=== PATIENT | female | born 1975 | race Caucasian/White ===

== ENCOUNTER → 2023-07-14 14:04 | Outpatient (BNVA) | payer MEDICARE, MEDICAID, SELFPAY | PROVIDERS: Family Provider Family Medicine; PCP Nurse Practitioner; Visit Provider Nurse Practitioner | DX: E55.9 Vitamin D deficiency, unspecified (principal); E61.1 Iron deficiency; E03.9 Hypothyroidism, unspecified; R23.2 Flushing | CPT/HCPCS: 80053; 80061; 82306; 82607; 83001; 83550; 84439; 84443; 84481; 85025 ==

== ENCOUNTER → 2023-07-25 11:05 | Outpatient (BNVA) | payer MEDICARE, MEDICAID, SELFPAY | PROVIDERS: Family Provider Family Medicine; PCP Nurse Practitioner; Referring Provider Nurse Practitioner; Visit Provider Internal Medicine Cardiovascular Disease | DX: R07.89 Other chest pain (principal); Q87.40 Marfan syndrome, unspecified; F17.210 Nicotine dependence, cigarettes, uncomplicated; R94.31 Abnormal electrocardiogram [ECG] [EKG] | CPT/HCPCS: 93005; 99204 ==

== ENCOUNTER 2023-07-27 06:00 | Outpatient (RCR) | payer MEDICARE, MEDICAID, SELFPAY | END 2023-08-02 23:59 | disposition home or self-care (01) | LOC: APT 06:00 | PROVIDERS: Family Provider Family Medicine; PCP Nurse Practitioner; Visit Provider Physician Assistant Surgical | DX: Z47.89 Encounter for other orthopedic aftercare (principal) | CPT/HCPCS: 97110; 97112; 97162 ==

== ENCOUNTER → 2023-07-29 09:10 | Outpatient (BNVA) | payer MEDICARE, MEDICAID, SELFPAY | PROVIDERS: Family Provider Family Medicine; PCP Nurse Practitioner; Visit Provider Podiatrist Foot & Ankle Surgery | DX: M79.671 Pain in right foot (principal); M76.821 Posterior tibial tendinitis, right leg; M79.672 Pain in left foot | CPT/HCPCS: 73630; 99203 ==

== ENCOUNTER 2023-08-03 06:00 | Outpatient (RCR) | payer MEDICARE, MEDICAID, SELFPAY | END 2023-09-01 23:59 | disposition home or self-care (01) | LOC: APT 06:00 | PROVIDERS: Family Provider Family Medicine; PCP Nurse Practitioner; Visit Provider Physician Assistant Surgical | DX: Z47.89 Encounter for other orthopedic aftercare (principal) | CPT/HCPCS: 97110; 97112; 97140; 97530 ==

== ENCOUNTER 2023-09-02 06:00 | Outpatient (RCR) | payer MEDICARE, MEDICAID, SELFPAY | END 2023-10-02 23:59 | disposition home or self-care (01) | LOC: APT 06:00 | PROVIDERS: PCP Nurse Practitioner; Visit Provider Physician Assistant Surgical | DX: Z47.89 Encounter for other orthopedic aftercare (principal) | CPT/HCPCS: 97110; 97112; 97530 ==

== ENCOUNTER → 2023-09-19 15:05 | Outpatient (BNVA) | payer MEDICARE, MEDICAID, SELFPAY | PROVIDERS: PCP Nurse Practitioner; Visit Provider Specialist | DX: G43.711 Chronic migraine without aura, intractable, with status migrainosus (principal); G43.011 Migraine without aura, intractable, with status migrainosus; Q87.43 Marfan syndrome with skeletal manifestation | CPT/HCPCS: 99204 ==

== ENCOUNTER 2023-10-03 06:00 | Outpatient (RCR) | payer MEDICARE, MEDICAID, SELFPAY | END 2023-11-02 23:59 | disposition home or self-care (01) | LOC: APT 06:00 | PROVIDERS: PCP Nurse Practitioner; Visit Provider Physician Assistant Surgical | DX: Z47.89 Encounter for other orthopedic aftercare (principal) | CPT/HCPCS: 97110; 97530 ==

== ENCOUNTER → 2023-12-12 10:26 | Outpatient (BNVA) | payer OTHER, MEDICAID, SELFPAY | PROVIDERS: PCP Nurse Practitioner; Visit Provider Nurse Practitioner | DX: E78.2 Mixed hyperlipidemia; E55.9 Vitamin D deficiency, unspecified; E53.8 Deficiency of other specified B group vitamins; E03.9 Hypothyroidism, unspecified | CPT/HCPCS: 80053; 80061; 82306; 82607; 84443 ==

== ENCOUNTER → 2023-12-20 14:22 | Outpatient (BNVA) | payer MEDICARE, MEDICAID, SELFPAY | PROVIDERS: PCP Nurse Practitioner; Visit Provider Specialist | DX: G43.711 Chronic migraine without aura, intractable, with status migrainosus (principal) | CPT/HCPCS: 99213 ==

== ENCOUNTER 2024-01-24 10:56 | Outpatient (CLI) | payer MEDICARE, MEDICAID, SELFPAY ==
--- NOTE | 2024-01-24 11:00 | MR_ITS ---
WS: [id number] MRA HEAD TECHNIQUE: Axial 3-D TOF images obtained with axial images and axial, sagittal, and coronal 2-D refor matted images. CLINICAL INFORMATION: G43.711 - Chronic migraine without aura, intractable, wit... COMPARISON: None. FINDINGS: Distal vertebral arteries are patent. Basilar artery is patent. Normal vascularity to the SYSTEMS TEST ENGINEER territo ry bilaterally. Both ICAs are patent at the skull base. Patent anterior communicating artery. Normal vascularity to t he BETHANY and MCA territories bilaterally. No evidence of proximal flow-limiting stenosis or aneurysm. IMPRESSION: Normal intracranial MRA.
--- NOTE | 2024-01-24 11:15 | MR_ITS ---
WS: [id number] MRI HEAD WITHOUT CONTRAST TECHNIQUE: Sagittal T1, T2 axial, T2 axial FLAIR, axial and coronal T1 images, axial susceptibility w eighted imaging, axial diffusion weighted images, and coronal T2 images were obtained. CLINICAL INFORMATION: G43.711 - Chronic migraine without aura, intractable, wit... COMPARISON: None. FINDINGS: Diffuse susceptibility artifact compatible with hemosiderin involving the cerebellar folia and cerebellar vermis. Additional hemosiderin along the frontoparietal junctions bilaterally. Punctat e foci of hemosiderin involving the parasagittal occipital lobes. Findings compatible with superficia l siderosis and can be seen with recurrent subarachnoid hemorrhage. Recommend entire spine MRI in fur ther evaluation. Findings not typical for amyloid angiopathy. No evidence of restricted diffusion to suggest acute ischemia. Ventricular system and basilar cistern s are patent. Minimal white matter changes. Moderate parenchymal volume loss more prominent involving the frontal lobes and bilateral parietal lobes near the vertex. Normal vascular flow voids at the skull base. No extra-axial fluid collections. No evidence of mass o r mass effect. Inspissated secretions in the RIGHT maxillary sinus. Complete opacification of the RIG HT maxillary sinus. Normal posterior nasopharynx. Normal parapharyngeal fat. Mastoid air cells are well aerated. IMPRESSION: 1. No evidence of restricted diffusion to suggest acute ischemia 2. Minimal white matter changes. Moderate cortical parenchymal volume loss described above. 3. Inspissated secretions with complete opacification of the RIGHT maxillary sinus. 4. Diffuse hemosiderin more prominent in the posterior fossa described above compatible with superfi cial siderosis. This can be seen with recurrent subarachnoid hemorrhage. Recommend entire spine MRI i n further evaluation. Recommend correlation with prior spine trauma or spine surgery
== END 2024-01-24 10:57 | disposition home or self-care (01) ==
LOC: RAD 10:58
PROVIDERS: PCP Nurse Practitioner; Visit Provider Specialist
DX: G43.711 Chronic migraine without aura, intractable, with status migrainosus (principal); G31.89 Other specified degenerative diseases of nervous system
CPT/HCPCS: 70544; 70551

== ENCOUNTER → 2024-02-20 10:18 | Outpatient (BNVA) | payer MEDICARE, MEDICAID, SELFPAY | PROVIDERS: PCP Nurse Practitioner; Visit Provider Internal Medicine Cardiovascular Disease | DX: I77.819 Aortic ectasia, unspecified site (principal); I34.1 Nonrheumatic mitral (valve) prolapse; Q87.40 Marfan syndrome, unspecified; F17.210 Nicotine dependence, cigarettes, uncomplicated; E78.2 Mixed hyperlipidemia; E03.8 Other specified hypothyroidism | CPT/HCPCS: 99214 ==

== ENCOUNTER 2024-03-17 19:16 | Emergency (ER) | payer MEDICARE, MEDICAID, SELFPAY ==
[2024-03-17 19:25] VITALS: BP 122/71; PULSE 87; RESP 17; TEMP 36.6; O2SAT 96; BMI 27.4
--- NOTE | 2024-03-17 19:45 | ED_ITS ---
HPI - Ear Problem General: Chief complaint: Ear Stated complaint: ear/tooth pain Time Seen by Provider: 03/17/24 19:37 History of Present Illness: Patient presents with left jaw and ear pain. She states she is unclear if she has an ear infection, or if it is from an infected tooth, or if she is having a migraine. She tried taking her migraine medications which do not help. She just recently came off antibiotics. She lost a cap over her rear molar that looks like it could be infected. Review of Systems Narrative: Constitutional symptoms: Negative except as documented in HPI. Skin symptoms: Negative except as documented in HPI. Eye symptoms: Negative except as documented in HPI. ENMT symptoms: Negative except as documented in HPI. Respiratory symptoms: Negative except as documented in HPI. Cardiovascular symptoms: Negative except as documented in HPI. Gastrointestinal symptoms: Negative except as documented in HPI. Genitourinary symptoms: Negative except as documented in HPI. Musculoskeletal symptoms: Negative except as documented in HPI. Neurologic symptoms: Negative except as documented in HPI. Psychiatric symptoms: Negative except as documented in HPI. Endocrine symptoms: Negative except as documented in HPI. PFS ED PFSH: Medical History (Updated 03/17/24 @ 19:53 by Karen Edmonds MD) Cigarette smoker Adult acne IBS (irritable bowel syndrome) Plantar fasciitis Low serum iron Vitamin D deficiency Asthma Migraine Hypothyroid Scoliosis Tarlov cyst L and S spine PCOS (polycystic ovarian syndrome) MVP (mitral valve prolapse) Marfan syndrome 4mm aorta PTSD (post-traumatic stress disorder) Fibromyalgia Surgical History History of esophagogastroduodenoscopy (EGD) History of colonoscopy History of rotator cuff surgery Right April 2023 History of myringotomy History of hernia repair incision with mesh History of D&C History of section 2 times History of right oophorectomy age 13 History of appendectomy age 13 History of tonsillectomy Family History Grandfather Cancer Lung Mother Cancer squamous cell skin cancer Social History Smoking and tobacco/nicotine status: current every day tobacco/nicotine user Second hand smoke exposure: No Alcohol intake: former Substance/Drug Use: unknown Adopted: No Caregiver/support person: No Lives independently: Yes Household members: family and children Housing: House Marital status: Single Number of children: 2 service: No Current occupational status: disabled Current occupational exposures/hazards: No Pets and animals: Yes Pets & animals: cat(s) Do you think of yourself as: Straight/Heterosexual Current gender identity: Female Physical Exam Narrative: EXAM NARRATIVE: General: Alert, no acute distress. Skin: warm and dry Head: Normocephalic Neck: Trachea midline Eye: Extraocular movements are intact. Ears, nose, mouth and throat: Oral mucosa moist left most posterior molar (#17) appears decayed and possibly has infection at the base. Eardrum is retracted. No signs of infection. No redness. No pus. Respiratory: Respirations are non-labored Musculoskeletal: Normal ROM Neurological: Alert and oriented, No focal neurological deficit observed. Psychiatric: Cooperative, appropriate mood & affect. Course Vital Signs: Vital signs: Vital Signs Temperature 98 F 03/17/24 19:25 Pulse Rate 87 03/17/24 19:25 Respiratory Rate 17 03/17/24 19:25 Blood Pressure 122/71 03/17/24 19:25 Pulse Oximetry 96 03/17/24 19:25 Oxygen Delivery Me thod Room Air 03/17/24 19:25 MDM - Ear Medical Decision Making Assessment and plan: Dental infection ? First dose clinda here. IM Toradol. P.o. Elkins. - Discharged home - Discussed plan with patient. Answered any questions. - Evaluation and treatment of this problem were appropriate in the emergency setting. No radiology studies performed this visit Discharge Plan Discharge Patient Disposition: Home Clinical Impression: Dental infection, Headache, migraine Condition: Stable Prescriptions: New clindamycin HCl 300 mg capsule 600 mg PO Q8H 10 Days Qty: 60 0RF dexamethasone 6 mg tablet 6 mg PO DAILY 5 Days Qty: 5 0RF diclofenac sodium 50 mg tablet,delayed release (DR/EC) 50 mg PO Q12H Qty: 20 0RF fluconazole 100 mg tablet 100 mg PO DAILY 10 Days Qty: 10 0RF No Action midodrine 5 mg tablet 5 mg PO TID Qty: 90 3RF Rx Instructions: do not give last dose of day after 6PM or within 4 hrs of bedtime zolmitriptan [Zomig] 5 mg tablet 5 mg PO Q2H PRN (Reason: migraine headache) Qty: 10 5RF Rx Instructions: do not exceed 2 doses per 24 hrs gabapentin 300 mg capsule 300 mg PO TID Qty: 90 5RF (DME) Bilateral Carri Braces See Rx Instructions .Route .MEDSUPPLY Qty: 1 0RF Rx Instructions: As directed- Chloe Barbosa medroxyprogesterone 10 mg tablet 10 mg PO DAILY Qty: 30 2RF venlafaxine 150 mg capsule,extended release 24hr 150 mg PO DAILY Qty: 30 2RF venlafaxine 75 mg capsule,extended release 24hr 75 mg PO DAILY Qty: 30 2RF buspirone 10 mg tablet 10 mg PO .every 4 hours PRN Qty: 120 2RF cyanocobalamin (vitamin B-12) 1,000 mcg/mL solution 1,000 mcg IM .monthly Qty: 1 2RF clindamycin phosphate 1 % swab 1 applic topical BID Qty: 60 2RF nortriptyline 10 mg capsule 20 mg PO .HS Qty: 30 2RF ondansetron 4 mg tablet,disintegrating 4 mg PO Q6H Qty: 20 2RF pregabalin [Lyrica] 75 mg capsule 75 mg PO TID Qty: 90 5RF rosuvastatin 5 mg tablet 5 mg PO DAILY Qty: 30 2RF (DME) syringe with needle 3 mL 22 gauge x 1 syringe See Rx Instructions .ROUTE .MEDSUPPLY Qty: 1 2RF Rx Instructions: monthly with B12 tizanidine 2 mg tablet 2 mg PO TID Qty: 90 2RF chlorhexidine gluconate [Peridex] 0.12 % mouthwash 15 ml buccal BID Qty: 473 0RF promethazine 25 mg tablet 25 mg PO Q4H PRN cholecalciferol (vitamin D3) 25 mcg (1,000 unit) capsule 50 mcg PO DAILY aspirin [Adult Low Dose Aspirin] 81 mg tablet,delayed release (DR/EC) 81 mg PO DAILY docusate sodium [Colace] 100 mg capsule 100 mg PO DAILY methylprednisolone 4 mg tablets,dose pack See Rx Instructions PO .COMPLEX PRN Rx Instructions: taper dose orally ; PRN; rizatriptan 5 mg tablet 5 mg PO .COMPLEX Rx Instructions: 5 mg orally 1 may repeat in 2 hours; (DME) Carri brace Right foot See Rx Instructions .Route .MEDSUPPLY Qty: 1 0RF Rx Instructions: As directed to the [facility] (DME) [facility] Left foot See Rx Instructions .Route .MEDSUPPLY Qty: 1 0RF Rx Instructions: As directed to the [facility] levothyroxine 25 mcg tablet 25 mcg PO DAILY Qty: 30 5RF fexofenadine-pseudoephedrine [Silva-D 12 Hour] 60-120 mg tablet extended release 12 hr 1 tab PO Q12H PRN (Reason: allergy symptoms) Qty: 30 0RF Emgality Pen 120 mg/mL pen injector See Rx Instructions .ROUTE .COMPLEX Qty: 1 3RF Dose Instruction: INJECT 120 MG UNDER SKIN ONCE Rx Instructions: INJECT 120 MG UNDER SKIN ONCE Discharge Orders: Discharge ED (Routine); Ordered 03/17/24 Ordered By: Karen Edmonds Referrals: Liana Polanco, [facility] [Primary Care Provider] - 4-7 days (Please follow-up with your dentist as soon as possible) Discharge Diet: Advance as tolerated Patient Instructions: Dental Abscess (ED) Activity Restrictions/Additional Instructions: Thank you for choosing [facility] for your healthcare needs today. Please realize this is an emergency room and that we are providing you with a medical screening exam and this may not be complete and all inclusive of all the testing and or work up that you may need to determine your ailment or severity of your illness. You have been screened and evaluated and felt safe for discharge. Health cond itions do change or evolve sometimes and as such it is important that you follow up with your Primary Doctor to be re checked, 3-5 days is a general good time frame for follow up. 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
[2024-03-17] MEDS: HYDROcodone-acetaminophen 10-325 mg Tablet 1 TAB PO (20:19)
[2024-03-17] MEDS: fluconazole 100 mg Tablet 150 MG PO (20:19)
[2024-03-17] MEDS: ketorolac 60 mg/2 mL INJ 30 MG IM (20:19)
[2024-03-17] MEDS: clindamycin 150 mg Capsule 600 MG PO (20:21)
[2024-03-17 20:29] VITALS: BP 122/71; PULSE 87; RESP 17; TEMP 36.6; O2SAT 96
== END 2024-03-17 20:30 | disposition home or self-care (01) ==
PROVIDERS: Emergency Provider Emergency Medicine; PCP Nurse Practitioner
DX: K04.7 Periapical abscess without sinus (principal); G43.909 Migraine, unspecified, not intractable, without status migrainosus; Z79.82 Long term (current) use of aspirin; Z72.0 Tobacco use
CPT/HCPCS: 96372; 99284; J1885

== ENCOUNTER → 2024-03-20 12:55 | Outpatient (CLI) | payer MEDICARE, MEDICAID, SELFPAY ==
--- NOTE | 2024-03-20 13:00 | USCV_ITS ---
Tan Aria Age: 48 Gender: F : 1975 Exam Date: 03/20/2024 13:13 Ordering Phys: Prosper Araujo MD ([email or web address]) Technologist: Exam Location: [facility] Indication: mvp BP: 100 / 70 HR: 72 Rhythm: Sinus Technical Quality: Adequate MEASUREMENTS (Male / Female) Normal Values 2D ECHO LV Diastolic Diameter PLAX 5.3 cm 4.2 - 5.9 / 3.9 - 5.3 cm IVS Diastolic Thickness 0.9 cm 0.6 - 1.0 / 0.6 - 0.9 cm IVS Systolic Thickness 1.8 cm LVPW Diastolic Thickness 1.4 cm 0.6 - 1.0 / 0.6 - 0.9 cm LVPW Systolic Thickness 1.6 cm LVOT Diameter 2.0 cm LV Ejection Fraction 2D Teich 67.7 % LV Ejection Fraction MOD 2C 84.8 % LV Ejection Fraction 2C AL 85.0 % LA Diameter 3.2 cm RA Systolic Volume 4C AL 36.4 ml RA Systolic Volume 4C MOD 35.5 ml Aorta at Sinotubular Diameter 3.7 cm IVC Diameter 1.7 cm M-MODE LA Ao Ratio MM 1.0 AV Cusp Separation MM 2.6 cm DOPPLER AV Peak Velocity 111.0 cm/s LVOT Peak Velocity 85.0 cm/s AV Area Cont Eq vti 2.9 cm squared AV Area Cont Eq pk 2.5 cm squared MV Peak Velocity 84.0 cm/s MV Area PHT 3.9 cm squared Mitral E to A Ratio 1.1 TR Peak Velocity 253.0 cm/s TR Peak Gradient 25.6 mmHg TV Peak E Velocity 91.0 cm/s Right Atrial Pressure 3.0 mmHg Pulmonary Artery Systolic Pressu 28.6 mmHg PV Peak Velocity 88.0 cm/s FINDINGS Left Ventricle Normal left ventricular size, systolic function and wall thickness, with no regional wall motion abnormalities. Normal left ventricular wall thickness.left ventricular ejection fraction is estimated at 60 %. Grade I/IV diastolic dysfunction (abnormal relaxation filling pattern), normal to mildly elevated filling pressures. Right Ventricle The right ventricle is normal in size and function. Right Atrium The right atrium is normal in size. Left Atrium The left atrium is normal in size. Mitral Valve Thickened mitral valve. No mitral valve stenosis. Mild mitral valve regurgitation. Aortic Valve Thickened aortic valve. No aortic valve stenosis. Mild aortic valve regurgitation. Tricuspid Valve Structurally normal tricuspid valve without significant stenosis or regurgitation. Pulmonary artery systolic pressure is normal. Pulmonic Valve Mild pulmonary valve regurgitation. Pericardium Normal pericardium without effusion. Aorta Normal ascending aorta dimension. IVC The inferior vena cava appears normal. CONCLUSIONS 1-Normal left ventricular size, systolic function and wall thickness, with no regional wall motion abnormalities. Normal left ventricular wall thickness.left ventricular ejection fraction is estimated at 60 %. Grade I/IV diastolic dysfunction (abnormal relaxation filling pattern), normal to mildly elevated filling pressures. 2-Thickened mitral valve. No mitral valve stenosis. Mild mitral valve regurgitation. 3-Thickened aortic valve. No aortic valve stenosis. Mild aortic valve regurgitation. 4-There is no pericardial effusion. 5-Right atrial pressure is around 5 mm of mercury. Chrissy Arrieta MD (Electronically Signed) Final Date: 20 March 2024 19:13 S
[2024-03-20] MEDS: iohexol 350 mg/mL 500 mL Btl (per mL) IV (13:51)
--- NOTE | 2024-03-20 14:00 | CTR_ITS ---
PROCEDURE INFORMATION: Exam: CTA Chest With Contrast CTA Abdomen and Pelvis With Contrast Exam date and time: 03/20/2024 1:41 PM Age: 48 years old Clinical indication: Condition or disease; Other: Marfans syndrome; Prior surgery; Surgery date: 6+ months; Surgery type: Appy, right ovary, hernia TECHNIQUE: Imaging protocol: Computed tomographic angiography of the chest with contrast. Exam focused on the arteries. Computed tomographic angiography of the abdomen and pelvis with contrast. Exam focused on the arteries. 3D rendering (Not supervised by radiologist): MIP and/or 3D reconstructed images were created by the technologist. Radiation optimization: All CT scans at this facility use at least one of these dose optimization techniques: automated exposure control; mA and/or kV adjustment per patient size (includes targeted exams where dose is matched to clinical indication); or iterative reconstruction. Contrast material: OMNI 350; Contrast volume: 100 ml; Contrast route: INTRAVENOUS (IV); COMPARISON: MR thoracic spin wo con* [id number] 07/07/2017 9:23 AM RADIATION DOSE METRICS: Total DLP (mGy-cm): 951.16 FINDINGS: VASCULATURE: Pulmonary arteries: Normal. No pulmonary emboli. Aorta: Dilated aortic root measuring 4.2 cm in diameter at the cusps. No other significant aortic abnormality. Celiac trunk and mesenteric arteries: No occlusion or significant stenosis. Renal arteries: No occlusion or significant stenosis. Right iliac arteries: No occlusion or significant stenosis. Left iliac arteries: No occlusion or significant stenosis. CHEST: Lungs: 5 mm solid noncalcified nodule anterolateral right lower lobe image 86 axial series 7. Small amount of scarring in both lung apices. Calcified granuloma left lung base. Otherwise, unremarkable. Pleural spaces: Unremarkable. No pneumothorax. No pleural effusion. Heart: Unremarkable. No cardiomegaly. No pericardial effusion. Coronary arteries: Tiny amount of coronary artery calcification. ABDOMEN AND PELVIS: Liver: 2 low-attenuation lesions in the right lobe of the liver are probably cysts, but are too small to accurately characterize. Otherwise, unremarkable. Gallbladder and bile ducts: Unremarkable. No calcified stones. No ductal dilation. Pancreas: Unremarkable. No mass. No ductal dilation. Spleen: Unremarkable. No splenomegaly. Adrenal glands: Unremarkable. No mass. Kidneys and ureters: Unremarkable. No solid mass. No hydronephrosis. Stomach and bowel: Unremarkable. No obstruction. No mucosal thickening. Appendix: No evidence of appendicitis. Intraperitoneal space: Unremarkable. No free air. No significant fluid collection. Urinary bladder: Unremarkable. No mass. Reproductive: Unremarkable as visualized. Lymph nodes: Unremarkable. No enlarged lymph nodes. Bones/joints: Mild scoliosis. Minimal and mild multilevel spondylosis. Surgical material in the right humeral head. Large bilateral perineural cysts involving the sacrum and extending into the posterior pelvis bilaterally. Additional left perineural cyst on the left at the L5-S1 level. The cysts are causing considerable scalloping of bones. Otherwise, unremarkable. Soft tissues: Small, benign-appearing fat containing umbilical hernia. Otherwise, unremarkable visualized body wall. Otherwise, unremarkable soft tissues. Other findings: The left vertebral artery arises directly from the aortic arch. This is a normal congenital variant. The proximal right vertebral artery is tortuous, somewhat irregular, and with areas of ectasia. This is likely fibromuscular dysplasia, however, could be the sequela of dissection. If dissection, this is likely chronic and not causing obvious hemodynamically significant stenosis. If fibromuscular dysplasia this could be causing a hemodynamically significant stenosis. CT/CT [facility] [id number] IMPRESSION: 1. Dilated aortic root measuring 4.2 cm in diameter at the cusps. 2. Abnormal proximal right vertebral artery. See above discussion. 3. No other significant arterial pathology identified. 4. 5 mm solid noncalcified nodule right lower lung. For patients at low risk (minimal or absent history of smoking and of other known risk factors), no routine follow-up is indicated. For patients at high risk (history of smoking or of other known risk factors), consider optional CT Chest at 12 months. (Reference: Rosa Maria). 5. Additional details as above. REFERENCES: Rosa Maria Schmitz, et al. Guidelines for Management of Incidental Pulmonary Nodules Detected on CT Images: From the Fleischner Society 2017. Radiology. 2017;284(1):228-243.
== END | disposition home or self-care (01) ==
LOC: RAD 12:55
PROVIDERS: PCP Nurse Practitioner; Visit Provider Internal Medicine Cardiovascular Disease
DX: I77.810 Thoracic aortic ectasia (principal); K76.89 Other specified diseases of liver; Q25.44 Congenital dilation of aorta; R91.1 Solitary pulmonary nodule; J84.10 Pulmonary fibrosis, unspecified; G96.191 Perineural cyst; K42.9 Umbilical hernia without obstruction or gangrene; R93.1 Abnormal findings on diagnostic imaging of heart and coronary circulation; I34.81 Nonrheumatic mitral (valve) annulus calcification; I35.2 Nonrheumatic aortic (valve) stenosis with insufficiency; I50.30 Unspecified diastolic (congestive) heart failure; R06.09 Other forms of dyspnea
CPT/HCPCS: 71275; 74174; 93306; Q9967

== ENCOUNTER → 2024-03-21 17:45 | Outpatient (BNVA) | payer MEDICARE, MEDICAID, SELFPAY | PROVIDERS: PCP Nurse Practitioner; Visit Provider Specialist | DX: G43.711 Chronic migraine without aura, intractable, with status migrainosus (principal); I77.819 Aortic ectasia, unspecified site; Q87.40 Marfan syndrome, unspecified; M79.7 Fibromyalgia | CPT/HCPCS: 99214 ==

== ENCOUNTER 2024-03-22 11:46 | Oncology outpatient (recurring) (ONCR) | payer MEDICARE, MEDICAID, SELFPAY ==
[2024-03-22 12:46] VITALS: BP 109/72; PULSE 73; RESP 16; TEMP 36.5; O2SAT 96
--- NOTE | 2024-03-22 12:52 | PC.NURSE ---
patient reports pain level with mirgaine at 8/10
[2024-03-22] MEDS: ondansetron 2 mg/ML SDV 2 mL 4 MG IVP ×2 (12:54→15:23)
[2024-03-22] MEDS: diphenhydrAMINE 50 mg/mL SDV 1mL 25 MG IVP (13:00)
[2024-03-22] MEDS: dihydroergotamine 1 mg/mL Inj 0.5 MG IVP ×6 (13:10→15:28)
--- NOTE | 2024-03-22 13:34 | PC.NURSE ---
patient reports pain level of 8/10 with migraine, will proceed with next dose of DHE per protocol
--- NOTE | 2024-03-22 14:04 | PC.NURSE ---
patient reports that pain level is 8/10 with migraine, will proceed with next dose of DHE per protocol - 12/06
--- NOTE | 2024-03-22 14:32 | PC.NURSE ---
patient reports pain level is 8/10 with migraine, will proceed with next dose of DHE protocol - 01/06
--- NOTE | 2024-03-22 14:58 | PC.NURSE ---
patient reports pain level of 8/10 with migraine, will proceed with dose 5/6 on DHE protocol
--- NOTE | 2024-03-22 15:25 | PC.NURSE ---
patient reports that pain level is 6/10 with migraine, will proceed with dose 6/6 on DHE protocol
--- NOTE | 2024-03-22 15:51 | PC.NURSE ---
patient reports pain level of 2/10 and declines to continue with DHE protocol. patient to be discharged home
[2024-03-22 15:52] VITALS: BP 124/82; PULSE 68; RESP 16; O2SAT 98
== END 2024-04-01 23:59 | disposition home or self-care (01) ==
PROVIDERS: PCP Nurse Practitioner; Visit Provider Specialist
DX: G43.909 Migraine, unspecified, not intractable, without status migrainosus (principal)
CPT/HCPCS: 96374; 96375; J1110; J1200; J2405

== ENCOUNTER 2024-04-04 06:00 | Outpatient (RCR) | payer MEDICARE, MEDICAID, SELFPAY | END 2024-05-02 23:59 | disposition home or self-care (01) | LOC: APT 06:00 | PROVIDERS: PCP Nurse Practitioner; Visit Provider Nurse Practitioner | DX: M25.511 Pain in right shoulder (principal) | CPT/HCPCS: 97110; 97140; 97161; 97530 ==

== ENCOUNTER → 2024-04-12 13:09 | Outpatient (BNVA) | payer MEDICARE, MEDICAID, SELFPAY | PROVIDERS: PCP Nurse Practitioner; Visit Provider Specialist | DX: G43.711 Chronic migraine without aura, intractable, with status migrainosus (principal); I77.819 Aortic ectasia, unspecified site; Q87.40 Marfan syndrome, unspecified; M79.7 Fibromyalgia | CPT/HCPCS: 64615 ==

== ENCOUNTER → 2024-04-17 09:05 | Outpatient (BNVA) | payer MEDICARE, MEDICAID, SELFPAY | PROVIDERS: PCP Nurse Practitioner; Visit Provider Nurse Practitioner | DX: E53.8 Deficiency of other specified B group vitamins (principal); E55.9 Vitamin D deficiency, unspecified; E03.8 Other specified hypothyroidism | CPT/HCPCS: 80053; 82306; 82607; 84443; 85025 ==

== ENCOUNTER 2024-05-15 11:11 | Outpatient (CLI) | payer MEDICARE, MEDICAID, SELFPAY ==
--- NOTE | 2024-05-15 11:20 | MM_ITS ---
WS: [id number] BILATERAL 3D TOMOSYNTHESIS DIGITAL SCREENING MAMMOGRAPHY WITH CAD CLINICAL INFORMATION: Z12.31 - Encounter for screening mammogram for malignant ... HISTORY: Screening mammogram. No current complaints. COMPARISON: Baseline TECHNIQUE: Bilateral CC and MLO views. FINDINGS: The breasts are composed of heterogeneous fibroglandular density tissue, which can limit the detectio n of small underlying mass lesions. No suspicious mass, asymmetry, calcifications, or architectural d istortion. No evidence of malignancy. MM/[place] [id number] IMPRESSION: BI-RADS: 1-Negative FOLLOW UP: 1 Year Follow-up Recommend return to annual screening mammography.
== END 2024-05-15 11:12 | disposition home or self-care (01) ==
LOC: MOBLMAM 11:27
PROVIDERS: PCP Nurse Practitioner; Visit Provider Nurse Practitioner
DX: Z12.31 Encounter for screening mammogram for malignant neoplasm of breast (principal)
CPT/HCPCS: 77063; 77067

== ENCOUNTER 2024-06-14 10:56 | Outpatient (CLI) | payer OTHER, MEDICAID, SELFPAY ==
--- NOTE | 2024-06-14 11:00 | MR_ITS ---
WS: [id number] MRI CERVICAL SPINE NONCONTRAST HISTORY: Q87.40 - Marfan syndrome, unspecified COMPARISON: MRI brain 01/24/2024 Technique: Multiplanar, multisequence noncontrast imaging of the cervical spine. Straightening of the normal cervical lordosis. Disc bases are mildly desiccated and narrowed. No frac tures. No signal abnormality within the cervical cord or hemorrhage identified. Signal within the cervical cord is normal. Visualized posterior fossa is unremarkable. Craniocervical junction, C1 and C2 relationship, odontoid process and soft tissues are normal. C2-C3: Normal. C3-C4: Mild osteophytic ridging. Mild LEFT facet arthritis. C4-C5: Normal. C5-C6: Mild osteophytic ridging. No stenosis. C6-C7: Tiny central disc protrusion abuts the ventral thecal sac. No significant stenosis. C7-T1: Small central disc protrusion. No stenosis. Paravertebral soft tissues are normal. MR/MR cervical spin wo con* [id number] IMPRESSION: 1. No cervical syrinx or mass. 2. Normal cervical cord. 3. Tiny central disc protrusions at C6-7 and C7-T1. 4. Mild facet joint arthritis on the LEFT at C3-4.
== END 2024-06-14 10:57 | disposition home or self-care (01) ==
LOC: RAD 10:57
PROVIDERS: PCP Nurse Practitioner; Visit Provider Nurse Practitioner
DX: Q87.40 Marfan syndrome, unspecified (principal); Q87.43 Marfan syndrome with skeletal manifestation
CPT/HCPCS: 72141

== ENCOUNTER → 2024-07-05 12:32 | Outpatient (BNVA) | payer MEDICARE, MEDICAID, SELFPAY | PROVIDERS: PCP Nurse Practitioner; Visit Provider Specialist | DX: G96.89 Other specified disorders of central nervous system (principal); G43.711 Chronic migraine without aura, intractable, with status migrainosus; I77.819 Aortic ectasia, unspecified site; Q87.40 Marfan syndrome, unspecified; M79.7 Fibromyalgia; J63.4 Siderosis; F17.200 Nicotine dependence, unspecified, uncomplicated; F17.210 Nicotine dependence, cigarettes, uncomplicated; Z71.6 Tobacco abuse counseling | CPT/HCPCS: 64615; 99215 ==

== ENCOUNTER 2024-07-27 10:38 | Outpatient (CLI) | payer MEDICARE, MEDICAID, SELFPAY ==
--- NOTE | 2024-07-27 11:00 | MR_ITS ---
WS: [id number] MRI LUMBAR SPINE WITH AND WITHOUT CONTRAST HISTORY: G96.89 - Other specified disorders of central nervous system COMPARISON: Lumbar spine 07/07/2017, prior CT 03/20/2024. MRI brain 01/24/2024 TECHNIQUE: Sagittal and axial multisequence imaging is submitted. Postcontrast imaging MultiHance 16 mL. Mild increase in thoracic kyphosis. No soft tissue mass or cord compression throughout the thoracic s pine. Posterior lumbar alignment is normal. Disc spaces and vertebral body heights are well-preserved. Disc spaces and vertebral body heights are well-preserved. Conus terminates normally at L1-2 disc level. Thecal sac is enlarged and patulous. AP diameter at the level of S1 is greater than at L4. Smooth sca lloping and erosions of the sacral vertebral bodies. There are numerous cystic masses in the sacrum e roding and enlarging the foramen consistent with dural diverticula versus meningocele versus perineur al cysts. These findings have been present on prior studies without significant change. No hemosideri n is evident. L1-L2: Patulous thecal sac. L2-L3: Patulous thecal sac. Nerve roots are becoming clumped posteriorly. There is no stenosis. L3-L4: There is a patulous thecal sac. Mild ligamentum flavum and facet arthritis. No stenosis. Nerve roots are clumped in the periphery of the thecal sac. L4-L5: Mild annular disc bulging. Nerve roots in the periphery of the thecal sac. Dural ectasia. Flui d in the facet joints bilaterally. L5-S1: Markedly patulous thecal sac with peripheral nerve roots. Dural ectasia extends into the enoch oswaldo bilaterally. Continuing into the sacrum are multiple lobulated cystic masses with a few septations. There is enlar gement of the sacral foramen and sacral vertebral body erosions. Nerve roots are being displaced. Ero sions and scalloping of the sacral segments. Postcontrast imaging demonstrates no enhancing mass along the visualized conus. There is very mild en hancement involving the facet joints and synovium of L4-5 which is most likely synovitis and not a va scular anomaly. MR/MR lumbar spine wo/w con [id number] IMPRESSION: 1. 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 M arkedly patulous thecal sac within large cystic masses causing erosions in the sacrum. Widening of the sacral foramina. Lobulated cystic masses also extend in to the foramina of L5-S1. History of Marfan syndrome was provided today. These findings are most likely due to dural ectasia with dural diverticulum. 2. No enhancing mass or vascular lesions are identified. 3. There is enhancement at the L4-5 facet joints consistent with synovitis.
[2024-07-27] MEDS: gadobenate dimeglumine 20 mL vial 16 ML IV (12:12)
== END 2024-07-27 10:39 | disposition home or self-care (01) ==
LOC: RAD 10:38
PROVIDERS: PCP Nurse Practitioner; Visit Provider Specialist
DX: G96.89 Other specified disorders of central nervous system (principal); G43.711 Chronic migraine without aura, intractable, with status migrainosus; I77.819 Aortic ectasia, unspecified site; M51.360 Other intervertebral disc degeneration, lumbar region with discogenic back pain only; M40.294 Other kyphosis, thoracic region; Q87.40 Marfan syndrome, unspecified; M79.7 Fibromyalgia; J63.4 Siderosis; F17.210 Nicotine dependence, cigarettes, uncomplicated; Z71.6 Tobacco abuse counseling
CPT/HCPCS: 72158; 99214; 99215

== ENCOUNTER 2024-08-01 09:51 | Outpatient (CLI) | payer MEDICARE, MEDICAID, SELFPAY ==
--- NOTE | 2024-08-01 10:15 | MR_ITS ---
WS: [id number] MRI HEAD WITH CONTRAST TECHNIQUE: Sagittal T1, T2 axial, T2 axial FLAIR, axial susceptibility weighted imaging, axial diffus ion weighted images, and coronal T2 images were obtained. Pre and post-T1 axial and post T1 coronal i mages. ADC and FSPGR images. CLINICAL INFORMATION: G96.89 - Other specified disorders of central nervous system COMPARISON: MRI 01/24/2024 FINDINGS: No evidence of restricted diffusion to suggest acute ischemia. Ventricular system and basa l cisterns are patent. Previously described hemosiderin in the basilar cisterns and posterior fossa e xtending into the cerebellar folia compatible with superficial siderosis unchanged in appearance. Isabella dence of prior subarachnoid hemorrhage involving the bilateral temporal lobes extending into the insu la and sylvian fissures unchanged. Stable opacification RIGHT maxillary sinus. Normal optic chiasm and pituitary infundibulum. Mesial te mporal lobes and hippocampal formations are otherwise normal in appearance. Enhancing venous angioma anterior and posterior RIGHT temporal lobe. Somewhat prominent vessels at the MCA trifurcation and ov erlying the RIGHT temporal lobe. No visualized AVM nidus. MR/MR head wo/w con [id number] IMPRESSION: 1. No evidence of restricted diffusion to suggest acute ischemia. 2. Enhancing vessels in the RIGHT temporal lobe most compatible with a benign venous angioma. No visualized AVM nidus. Prominent vessels at the MCA trifurcat ion and overlying the RIGHT temporal lobe. Consider conventional angiography in further evaluation if no history of hemorrhagic source. 3. Stable hemosiderin described above extending into the basilar cisterns and fourth ventricle. Hemosiderin most prominent in the cerebellum and cerebellar f olga compatible with superficial siderosis and recurrent subarachnoid hemorrhag e 4. Otherwise no significant interval changes compared to previous noncontrast MRI. 5. Stable opacification RIGHT maxillary sinus. 6. Minimal white matter changes. Moderate cortical parenchymal volume loss is stable.
[2024-08-01] MEDS: gadobenate dimeglumine 20 mL vial IV (10:56)
--- NOTE | 2024-08-01 11:00 | MR_ITS ---
WS: [email or web address] MR CERVICAL SPINE WO/W COMPARISON: None. HISTORY: G96.89 - Other specified disorders of central nervous system TECHNIQUE: Sagittal T1, T2 and T2 inversion recovery; axial T2, T2 gradient and fiesta. Post gadolini um imaging with fat saturation technique. FINDINGS:Straightening of the normal cervical lordosis. No high grade central canal narrowing. Cord s ignal is normal. Prominent CSF flow voids in the dorsal upper thoracic canal. Hemosiderin visualized in the basilar ci sterns and extending along the surface of the brainstem and cervical medullary junction into the uppe r cervical cord. No visualized enhancing vascular malformation in the cervical canal. C2-3: Mild facet arthropathy. Spinal canal and foramen are patent. C3-4: Mild facet arthropathy. Spinal canal and foramen are patent. Enhancing synovitis with edema LEF T C3-4 facets likely inflammatory C4-5: Mild facet arthropathy. Mild LEFT bony foraminal narrowing. Spinal canal is patent. C5-6: Moderate facet arthropathy. Spinal canal and foramen are patent. C6-7: LEFT eccentric disc osteophyte complex with moderate LEFT foraminal narrowing. RIGHT foramen is patent. Spinal canal is patent. Mild facet arthropathy. C7-T1: Mild disc osteophyte ridging. Spinal canal and foramen are patent. MR/MR cervical spine wo/w [id number] IMPRESSION: 1. Straightening of the normal cervical lordosis. No high-grade central canal narrowing. Cord signal is normal. 2. Prominent flow voids visualized in the upper thoracic canal also markedly p rominent on the prior thoracic spine MRI 1217. Recommend further evaluation wit h thoracic spine MRI without and with gadolinium in further evaluation in parti cular to exclude spinal dural AV fistula 3. Superficial siderosis seen in the basilar cisterns and cerebellum described on the head MRI. This also extends along the cervical medullary junction and u pper cervical cord. 4. No visualized vascular malformation in the cervical spine. 5. Mild disc bulging with shallow central protrusions at C4-C7. 6. Slight anterolisthesis C7 on T1. 7. Enhancing synovitis LEFT C3-4 facets likely inflammatory. 8. Moderate LEFT C6-7 bony foraminal narrowing.
== END 2024-08-01 09:52 | disposition home or self-care (01) ==
LOC: RAD 09:52
PROVIDERS: PCP Nurse Practitioner; Visit Provider Specialist
DX: D18.02 Hemangioma of intracranial structures (principal); J01.00 Acute maxillary sinusitis, unspecified; G31.89 Other specified degenerative diseases of nervous system; M46.92 Unspecified inflammatory spondylopathy, cervical region; M47.892 Other spondylosis, cervical region; M25.78 Osteophyte, vertebrae; M99.61 Osseous and subluxation stenosis of intervertebral foramina of cervical region; G96.89 Other specified disorders of central nervous system
CPT/HCPCS: 70553; 72156

== ENCOUNTER → 2024-08-06 11:17 | Outpatient (BNVA) | payer MEDICARE, MEDICAID, SELFPAY | PROVIDERS: PCP Nurse Practitioner; Visit Provider Clinical Nurse Specialist Adult Health | DX: S69.92XA Unspecified injury of left wrist, hand and finger(s), initial encounter (principal); M79.642 Pain in left hand; M18.9 Osteoarthritis of first carpometacarpal joint, unspecified; W50.1XXA Accidental kick by another person, initial encounter | CPT/HCPCS: 73130 ==

== ENCOUNTER → 2024-08-15 14:02 | Outpatient (BNVA) | payer MEDICARE, MEDICAID, SELFPAY | PROVIDERS: PCP Nurse Practitioner; Visit Provider Nurse Practitioner | DX: R19.7 Diarrhea, unspecified (principal) | CPT/HCPCS: 80053; 81000; 85025 ==

== ENCOUNTER → 2024-08-21 10:37 | Outpatient (BNVA) | payer MEDICARE, MEDICAID, SELFPAY | PROVIDERS: PCP Nurse Practitioner; Visit Provider Nurse Practitioner | DX: R19.7 Diarrhea, unspecified (principal) | CPT/HCPCS: 87045; 87427; 87449; 87493 ==

== ENCOUNTER → 2024-09-04 11:26 | Outpatient (BNVA) | payer MEDICARE, MEDICAID, SELFPAY | PROVIDERS: PCP Nurse Practitioner; Visit Provider Internal Medicine Cardiovascular Disease | DX: Q87.418 Marfan syndrome with other cardiovascular manifestations (principal); I77.819 Aortic ectasia, unspecified site; F43.10 Post-traumatic stress disorder, unspecified; F17.210 Nicotine dependence, cigarettes, uncomplicated; R93.89 Abnormal findings on diagnostic imaging of other specified body structures | CPT/HCPCS: 99214 ==

== ENCOUNTER → 2024-10-12 10:54 | Outpatient (BNVA) | payer MEDICARE, MEDICAID, SELFPAY | PROVIDERS: PCP Nurse Practitioner; Visit Provider Specialist | DX: R93.7 Abnormal findings on diagnostic imaging of other parts of musculoskeletal system (principal); G96.89 Other specified disorders of central nervous system; G43.711 Chronic migraine without aura, intractable, with status migrainosus | CPT/HCPCS: 64615; 99214 ==

== ENCOUNTER → 2024-10-29 12:26 | Outpatient (BNVA) | payer MEDICARE, MEDICAID, SELFPAY | PROVIDERS: PCP Nurse Practitioner; Visit Provider Nurse Practitioner | DX: M19.042 Primary osteoarthritis, left hand (principal) | CPT/HCPCS: 73130 ==

== ENCOUNTER 2024-10-30 11:51 | Outpatient (CLI) | payer MEDICARE, MEDICAID, SELFPAY ==
--- NOTE | 2024-10-30 12:00 | CT_ITS ---
WS: [email or web address] CT chest wo con [id number] HISTORY: I77.819 - Aortic ectasia, unspecified site TECHNIQUE: Axial imaging performed through the thorax. Coronal and sagittal reformats are submitted. All CT scans at [facility] use at least one of these dose optimization techniques: automated exposure control; mA and/or kV adjustment per patient size (includes targeted exams where dose is mat ched to clinical indication); or iterative reconstruction. CONTRAST: None DLP: 296.72 mGy.cm COMPARISON: 03/20/2024 Lungs and central airway: Well-aerated lungs. 3.5 mm nodule periphery RIGHT lower lobe. Benign calcif ied granuloma at the LEFT lung base. No pneumonia. Pleura: Normal. No pleural effusion. Heart and pericardium: Normal size heart with no pericardial effusion. Mediastinum and mylene: No mediastinum or hilar adenopathy. Vessels: Normal size ascending aorta. Normal descending aorta with minimal plaque. Previously describ ed enlargement of the aortic root. Aortic root on today's noncontrast CT is 4.0 cm with sinotubular j unction 2.8 cm. Chest wall and lower neck: 6 mm subcutaneous nodule superior RIGHT thorax at the level of the clavicl e is probably a small sebaceous cyst. Upper abdomen: No adrenal mass. Stable RIGHT hepatic lobe cyst. Cyst is 1.3 cm in diameter. Visualize d gallbladder is negative. Osseous structures: No destructive process. CT/CT chest wo con [id number] IMPRESSION: 1. 3.5 mm noncalcified nodule periphery RIGHT lower lobe. No change since 03/20. 2. Evaluation of the thoracic aorta and aortic root cannot be accurately perfo rmed on this noncontrast chest CT. To further evaluate the thoracic aorta inclu ding the aortic root chest CT angiogram to evaluate the aorta is recommended. T he measurements performed on the aortic root today appear very similar to the m easurements performed on 03/20/2024. 3. Sebaceous cyst RIGHT upper thorax.
== END 2024-10-30 11:52 | disposition home or self-care (01) ==
LOC: RAD 11:51
PROVIDERS: PCP Nurse Practitioner; Visit Provider Nurse Practitioner
DX: I77.819 Aortic ectasia, unspecified site (principal); R91.1 Solitary pulmonary nodule; R93.5 Abnormal findings on diagnostic imaging of other abdominal regions, including retroperitoneum; J84.10 Pulmonary fibrosis, unspecified; K76.89 Other specified diseases of liver
CPT/HCPCS: 71250

== ENCOUNTER 2024-11-05 11:43 | Outpatient (CLI) | payer MEDICARE, MEDICAID, SELFPAY ==
--- NOTE | 2024-11-05 11:45 | MR_ITS ---
WS: [id number] MRI THORACIC SPINE WITH CONTRAST TECHNIQUE: Sagittal T1, T2 and STIR imaging. Axial T2 imaging. Post gadolinium imaging was obtained. CLINICAL INFORMATION: R93.7 - Abnormal findings on diagnostic imaging of other ... COMPARISON: 2017 FINDINGS: Mild thoracic curve. Mild thoracic kyphosis. No acute compression fractures. No high-grade central ca nal stenosis. Prominent CSF flow voids in the dorsal spinal canal similar to the prior examination. N o enhancing vessels or lesions on the post gadolinium imaging to indicate dural fistula or AV malform ation. No enhancing lesions in the cord. Mild facet arthropathy lower thoracic spine. Normal caliber thoracic aorta. No other acute findings. MR/MR thoracic spine wo/w [id number] IMPRESSION: 1. No enhancing lesions in the thoracic canal or thoracic cord. 2. No acute findings. 3. Somewhat patulous dorsal spinal canal with prominent CSF pulsation artifact unchanged since 2017. Patient with history of Marfan syndrome.
[2024-11-05] MEDS: gadobenate dimeglumine 20 mL vial 15 ML IV (12:39)
== END 2024-11-05 11:44 | disposition home or self-care (01) ==
LOC: RAD 11:44
PROVIDERS: PCP Nurse Practitioner; Visit Provider Specialist
DX: R93.7 Abnormal findings on diagnostic imaging of other parts of musculoskeletal system (principal); G96.89 Other specified disorders of central nervous system; M43.8X4 Other specified deforming dorsopathies, thoracic region; M40.294 Other kyphosis, thoracic region; M47.894 Other spondylosis, thoracic region
CPT/HCPCS: 72157

== ENCOUNTER → 2025-01-11 11:23 | Outpatient (BNVA) | payer MEDICARE, MEDICAID, SELFPAY | PROVIDERS: PCP Nurse Practitioner; Visit Provider Specialist | DX: G43.711 Chronic migraine without aura, intractable, with status migrainosus (principal); G96.89 Other specified disorders of central nervous system; I77.819 Aortic ectasia, unspecified site; Q87.40 Marfan syndrome, unspecified; M79.7 Fibromyalgia; J63.4 Siderosis; F17.200 Nicotine dependence, unspecified, uncomplicated | CPT/HCPCS: 64615; 99213; J9999 ==

== ENCOUNTER → 2025-01-28 11:41 | Outpatient (BNVA) | payer MEDICARE, MEDICAID, SELFPAY | PROVIDERS: PCP Nurse Practitioner; Visit Provider Nurse Practitioner | DX: K58.1 Irritable bowel syndrome with constipation (principal); R93.89 Abnormal findings on diagnostic imaging of other specified body structures | CPT/HCPCS: 74018 ==

== ENCOUNTER → 2025-03-05 09:55 | Outpatient (BNVA) | payer MEDICARE, MEDICAID, SELFPAY | PROVIDERS: PCP Nurse Practitioner; Visit Provider Nurse Practitioner Family | DX: Q87.40 Marfan syndrome, unspecified (principal); I77.819 Aortic ectasia, unspecified site; I34.0 Nonrheumatic mitral (valve) insufficiency; E03.9 Hypothyroidism, unspecified; I95.89 Other hypotension; J45.909 Unspecified asthma, uncomplicated; F17.200 Nicotine dependence, unspecified, uncomplicated | CPT/HCPCS: 99214 ==

== ENCOUNTER → 2025-03-07 16:26 | Outpatient (BNVA) | payer MEDICARE, MEDICAID, SELFPAY | PROVIDERS: PCP Nurse Practitioner; Visit Provider Nurse Practitioner | DX: M79.7 Fibromyalgia (principal); E03.8 Other specified hypothyroidism; E55.9 Vitamin D deficiency, unspecified | CPT/HCPCS: 80053; 82306; 82607; 84443; 85025; 85651; 86140 ==

== ENCOUNTER 2025-04-04 14:05 | Outpatient (CLI) | payer MEDICARE, SELFPAY ==
[2025-04-04] MEDS: iohexol 350 mg/mL 500 mL Btl (per mL) IV (14:29)
--- NOTE | 2025-04-04 14:30 | CT_ITS ---
WS: [email or web address] CTA THORACIC TECHNIQUE: Contrast enhanced CTA of the thoracic aorta with coronal and sagittal reformatted images and maximum intensity projection (MIP) images. CLINICAL INFORMATION: aortic root dilation, marfans syndrome COMPARISON: CTA 03/20/2024 DLP: 549.[address] scans at [facility] use at least one of these dose optimization techniques: automated exposure control; mA and/or kV adjustment per patient size (includes targeted exams where dose is matched to clinical indication); or iterative reconstruction. FINDINGS: Previously described aortic root dilatation measuring 3.9 cm at the aortic root is unchanged. Normal caliber descending thoracic aorta. Mild atheromatous plaque. LEFT vertebral artery incidentally arises from the aortic arch. Tortuous slightly ectatic proximal RIGHT vertebral artery is unchanged. Previously described 3.5 mm nodule RIGHT lower lobe laterally is unchanged. No mediastinal or hilar lymphadenopathy. Lungs are well aerated. No axillary lymphadenopathy. Stable subcutaneous nodule RIGHT chest wall likely sebaceous cyst. Partially visualized low-attenuation hepatic cyst. Mild thoracic curve. Mild thoracic kyphosis. Adrenal glands are normal. Small esophageal hernia. Celiac and SMA are patent. CT/CT angio chest [id number] IMPRESSION: 1. Previous described aneurysmal dilatation of the aortic root measuring 3.9 i s unchanged since 2023. 2. Normal caliber descending thoracic aorta. 3. Noncalcified RIGHT lower lobe pulmonary nodule measuring 3.5 mm laterally i s unchanged 4. Great vessels are patent where visualized. LEFT vertebral artery incidental ly arises from the aortic arch. 5. Proximal main pulmonary arteries are normal. 6. Small esophageal hiatal hernia 7. No other significant changes compared to previous.
== END 2025-04-04 14:06 | disposition home or self-care (01) ==
LOC: RAD 14:05
PROVIDERS: PCP Nurse Practitioner; Visit Provider Nurse Practitioner Family
DX: I77.819 Aortic ectasia, unspecified site (principal); Q87.40 Marfan syndrome, unspecified; R91.1 Solitary pulmonary nodule; K44.9 Diaphragmatic hernia without obstruction or gangrene
CPT/HCPCS: 71275

== ENCOUNTER → 2025-04-11 11:40 | Outpatient (BNVA) | payer MEDICARE, SELFPAY | PROVIDERS: PCP Nurse Practitioner; Visit Provider Specialist | DX: G96.89 Other specified disorders of central nervous system (principal); G43.711 Chronic migraine without aura, intractable, with status migrainosus; I77.819 Aortic ectasia, unspecified site; Q87.40 Marfan syndrome, unspecified; M79.7 Fibromyalgia; J63.4 Siderosis; F17.200 Nicotine dependence, unspecified, uncomplicated; R11.0 Nausea | CPT/HCPCS: 64615; 96372; 99214; J9999 ==

== ENCOUNTER 2025-06-11 15:02 | Outpatient (CLI) | payer MEDICARE, MEDICAID, SELFPAY ==
--- NOTE | 2025-06-11 15:00 | MM_ITS ---
WS: [email or web address] BILATERAL 3D TOMOSYNTHESIS DIGITAL SCREENING MAMMOGRAPHY WITH CAD CLINICAL INFORMATION: SCREENING HISTORY: Screening mammogram. No current complaints. COMPARISON: 2023 TECHNIQUE: Bilateral CC and MLO views. FINDINGS: The breasts are composed of heterogeneous fibroglandular density tissue, which can limit the detection of small underlying mass lesions. No suspicious mass, asymmetry, calcifications, or architectural distortion. No evidence of malignancy. MM/MM scr tomosynthesis [id number] IMPRESSION: DENSITY: The breasts are heterogeneously dense, which may obscure small masses. BI-RADS: 1 - Negative FOLLOW UP: 1 Year Follow-up Recommend return to annual screening mammography.
== END 2025-06-11 15:03 | disposition home or self-care (01) ==
LOC: MOBLMAM 15:04
PROVIDERS: PCP Nurse Practitioner; Visit Provider Nurse Practitioner
DX: Z12.31 Encounter for screening mammogram for malignant neoplasm of breast (principal); R92.323 Mammographic fibroglandular density, bilateral breasts; R92.333 Mammographic heterogeneous density, bilateral breasts
CPT/HCPCS: 77063; 77067

== ENCOUNTER 2025-07-24 17:13 | Outpatient (CLI) | payer MEDICARE, MEDICAID, SELFPAY ==
--- NOTE | 2025-07-24 17:19 | XRR_ITS ---
PROCEDURE INFORMATION: Exam: XR Right Ankle Exam date and time: 07/24/2025 5:29 PM Age: 49 years old Clinical indication: Injury or trauma; Other: Twisted RT ankle/foot; Sprain or strain; Right; Additional info: Ankle pain TECHNIQUE: Imaging protocol: Radiologic exam of the right ankle. Views: 3 or more views. COMPARISON: CR XR foot RT min 3V* [id number] 07/29/2023 9:14 AM FINDINGS: Bones/joints: Normal. Soft tissues: Normal. XR/XR ankle RT min 3V* [id number] IMPRESSION: No acute findings.
--- NOTE | 2025-07-24 17:19 | XRR_ITS ---
PROCEDURE INFORMATION: Exam: XR Right Foot Exam date and time: 07/24/2025 5:29 PM Age: 49 years old Clinical indication: Injury or trauma; Other: Twisted foot/ankle; Swelling (edema); Right; Injury date: Today; Additional info: Foot pain TECHNIQUE: Imaging protocol: Radiologic exam of the right foot. Views: 3 or more views. COMPARISON: CR XR foot RT min 3V* [id number] 07/29/2023 9:14 AM FINDINGS: Bones/joints: No acute fracture or dislocation. Soft tissues: Normal. XR/XR foot RT min 3V* [id number] IMPRESSION: No acute osseous findings.
== END 2025-07-24 17:14 | disposition home or self-care (01) ==
PROVIDERS: PCP Nurse Practitioner; Visit Provider Registered Nurse Neonatal Intensive Care
DX: M25.571 Pain in right ankle and joints of right foot (principal); S99.821A Other specified injuries of right foot, initial encounter; X58.XXXA Exposure to other specified factors, initial encounter; M79.89 Other specified soft tissue disorders
CPT/HCPCS: 73610; 73630

== ENCOUNTER → 2025-07-25 09:19 | Outpatient (BNVA) | payer MEDICARE, MEDICAID, SELFPAY | PROVIDERS: PCP Nurse Practitioner; Visit Provider Specialist | DX: G43.711 Chronic migraine without aura, intractable, with status migrainosus (principal) | CPT/HCPCS: 64615; J9999 ==

== ENCOUNTER → 2025-08-07 08:04 | Outpatient (BNVA) | payer MEDICARE, MEDICAID, SELFPAY | PROVIDERS: PCP Nurse Practitioner; Visit Provider Nurse Practitioner | DX: K58.1 Irritable bowel syndrome with constipation (principal); E55.9 Vitamin D deficiency, unspecified; E53.8 Deficiency of other specified B group vitamins; E78.2 Mixed hyperlipidemia | CPT/HCPCS: 74018; 80053; 80061; 82306; 82607; 84443; 85025 ==